=== PATIENT | female | born 1995 | race African-American/Black ===

== ENCOUNTER 2017-03-03 11:29 | Emergency (ER) | payer MEDICAID ==
[~2017-03-03 11:29] MED LIST: RISP1 PO; VENTAER INH
[2017-03-03 11:30] VITALS: BP 136/78; PULSE 100; RESP 18; TEMP 99; O2SAT 100
--- NOTE | 2017-03-03 11:51 | PD ---
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 21-year-old female presents for evaluation of vaginal discharge. Symptom onset 2 weeks ago. She reports white itchy vaginal discharge. She denies pain, nausea or vomiting, fevers or chills, flank pain, dysuria. Denies recent antibiotic use. She is sexually active with one partner. She has no other complaints at this time. [facility] Past Medical History Asthma: Yes Developmental Delay: Yes Diminished Hearing: No Respiratory: Yes (ASTHMA) Immunizations Current: Yes ?: Not Social History Alcohol Use: No (DENIED) Tobacco Use: No (DENIED) Substance Use: No (PER RECORD) Allergies-Medications (Allergen,Severity, Reaction): Coded Allergies: No Known Allergies (Verified , 03/03/17) Reported Meds & Prescriptions Reported Meds & Active Scripts Active Flagyl (Metronidazole) 500 Mg Tab 500 Mg PO BID 7 Days Reported Ventolin Hfa 18 GM Inh (Albuterol Sulfate) 90 Mcg/Act Aer 2 Puff INH Q4-6H PRN Risperdal (Risperidone) 1 Mg Tab 1 Mg PO DAILY Review of Systems Except as stated in HPI: all other systems reviewed are Neg Physical Exam Narrative GENERAL: Well-developed well-nourished female in no acute distress SKIN: Warm and dry. HEAD: Atraumatic. Normocephalic. EYES: Pupils equal and round. No scleral icterus. No injection or drainage. ENT: No nasal bleeding or discharge. Mucous membranes pink and moist. NECK: Trachea midline. No JVD. CARDIOVASCULAR: Regular rate and rhythm. No murmur appreciated. RESPIRATORY: No accessory muscle use. Clear to auscultation. Breath sounds equal bilaterally. GASTROINTESTINAL: Abdomen soft, non-tender, nondistended. Hepatic and splenic margins not palpable. Pelvic examination in the presence of a female nurse: White count will discharge in the vaginal canal. No cervical motion tenderness or adnexal tenderness. MUSCULOSKELETAL: No obvious deformities. NEUROLOGICAL: Awake and alert. No obvious cranial nerve deficits. Motor grossly within normal limits. Normal speech. PSYCHIATRIC: Appropriate mood and affect; insight and judgment normal. Data Data Last Documented VS Vital Signs Date Time Temp Pulse Resp B/P (MAP) Pulse Ox O2 Delivery O2 Flow Rate FiO2 03/03/17 11:30 99.0 100 18 136/78 (97) 100 Room Air Orders Orders Gc And Chlamydia Pcr (03/03/17 11:49) Wet Prep Profile (03/03/17 11:49) Ed Urine Pregnancytest Poc (03/03/17 11:49) Azithromycin Powd Pack (Zithromax Powd P (03/03/17 13:15) Ceftriaxone Inj (Rocephin Inj) (03/03/17 13:15) Lidocaine 1% Inj (50 Ml) (Xylocaine 1% I (03/03/17 13:15) Labs Laboratory Tests Test 03/03/17 12:05 03/03/17 12:48 Clue Cells (Wet Prep) PRESENT Vaginal Trichomonas (Wet Prep) NONE SEEN Vaginal Yeast (Wet Prep) NONE SEEN MDM Medical Decision Making Medical Screen Exam Complete: Yes Emergency Medical Condition: Yes Medical Record Reviewed: Yes Differential Diagnosis Trichomoniasis, bacterial vaginosis, vaginitis, cervicitis, retained foreign body, pelvic inflammatory disease, tubo-ovarian abscess Narrative Course 21-year-old female here with 2 weeks of white itchy vaginal discharge. Physical examination is reassuring with no evidence of PID. Her wet prep is positive for clue cells. The patient will be given a prescription for Flagyl. Discussed the fact that the GC probe is currently pending and will not be available today and she would prefer to be empirically treated pending these results. She will be given Rocephin and azithromycin here. She is stable for discharge. Diagnosis Primary Impression: Bacterial vaginosis Additional Instructions: Medication as prescribed. Follow-up with primary care as needed and return for any emergent medical conditions. Med/Other Pt SpecificInfo: Prescription(s) given Scripts Metronidazole (Flagyl) 500 Mg Tab 500 MG PO BID for Infection for 7 Days, #14 TAB 0 Refills Prov: Jesica Guzman DO 03/03/17 Disposition: 01 DISCHARGE HOME Condition: Stable Herman Gibbs Mar 03, 2017 11:51
[2017-03-03] MEDS ORDERED: METR-1 PO (12:52)
[2017-03-03] MEDS ORDERED: AZITHROMYCIN PWD FOR SUSP 1 GM PACKET PO ONE (13:15)
[2017-03-03] MEDS ORDERED: LIDOCAINE HCL 1% 50 ML VIAL IM ONE (13:15)
[2017-03-03] MEDS ORDERED: cefTRIAXone 250 MG VIAL IM ONE (13:15)
[2017-03-03 13:29] VITALS: BP 128/72
[2017-03-03 15:24] LABS: CHLAMYDIA PCR DETECTED (NOT DETECT); NEISSERIA PCR DETECTED (NOT DETECT)
== END 2017-03-03 14:03 | disposition home or self-care (01) ==
LOC: NEPD 11:29
DX: N76.0 Acute vaginitis (principal)
CPT/HCPCS: 84703; 87210; 87491; 87591; 96372; 99284; J0696